=== PATIENT | male | born 1985 | race Caucasian/White ===

== ENCOUNTER 2023-05-20 17:47 | Emergency (ER) | payer OTHER, SELFPAY ==
[2023-05-20 17:54] VITALS: BP 170/110
[2023-05-20 18:10] LABS: Urine Albumin 1+ (Neg - Trace); Urine Bilirubin 1+ (Negative); Urine Character Slightly Cloudy (Clear); Urine Glucose Negative (Negative); Urine Ketone Negative (Negative); Urine Leukocyte Trace (Negative); Urine Nitrite Positive (Negative); Urine Occult Blood 4+ (Negative); Urine Specific Gravity 1.025 (<1.030); Urine Urobilinogen 1+ (Neg - 1+)
[2023-05-20 18:11] LABS: % Basophils 0.9 % (0-2); % Eosinophils 0.7 % (0-6); % Immature Granulocytes 0.3 % (0-0.5); % Lymphocytes 26.3 % (20.5-51.1); % Monocytes 9.5 % (1.7-9.3); % Neutrophils 62.3 % (42.2-75.2); Absolute Basophils 0.1 10^3/uL (0-0.2); Absolute Eosinophils 0.1 10^3/uL (0-0.7); Absolute Lymphocytes 2.7 10^3/uL (1.2-3.4); Absolute Neutrophils 6.4 10^3/uL (1.4-6.5); Hematocrit 48.8 % (39.0-52.0); Mean Corp Hgb Conc. 34.8 g/dL (33.0-37.0); Mean Corpuscular Hgb 29.5 pg (27.0-31.0); Mean Corpuscular Volume 84.6 fL (80.0-94.0); Mean Platelet Volume 8.7 fL (7.4-10.4); Nucleated Red Blood Cells % 0 % (-); Platelet Count 490 10^3/uL (130-400); Red Blood Cell Count 5.77 10^6/uL (4.70-6.10); Red Cell Dist. Width 12.5 % (11.5-14.5); White Blood Cell Count 10.2 10^3/uL (4.8-10.8)
[2023-05-20 18:13] LABS: Urine Color Pink
[2023-05-20 18:20] LABS: Urine Squamous Cell 0-2 /LPF (Few)
[2023-05-20 18:21] LABS: Urine Bacteria Few (Negative); Urine Red Blood Cell >100 /HPF (0-2); Urine White Cell 0-2 /HPF (0-5)
[2023-05-20 18:27] LABS: ALT (SGPT) 88 U/L (0-50); AST (SGOT) 62 U/L (17-59); Albumin 4.6 g/dl (3.5-5.0); Alkaline Phosphatase 50 U/L (38-126); Blood Urea Nitrogen 16 mg/dl (9-20); Carbon Dioxide 30 mmol/L (22-30); Chloride 99 mmol/L (98-107); Glucose 109 mg/dl (70-99); Sodium 141 mmol/L (135-145); Total Bilirubin 0.9 mg/dl (0.2-1.3); Total Protein 8.2 g/dl (6.3-8.2); eGFR > 60.00
[2023-05-20 20:36] VITALS: BP 136/103
[2023-05-20 21:00] VITALS: BP 154/95
--- NOTE | 2023-05-20 21:17 | ED.GENMED ---
History of Present Illness
General
Chief Complaint: Flank Pain
Source: patient
Exam Limitations: none
Time Seen by Provider: 05/20/23 20:36
Nursing documentation reviewed up to this point in time: agreed with
Travel History
Have you had any contact with someone who has COVID-19?: No
Do you have any symptoms of coronavirus? Fever > 100 degrees, chills, cough, shortness of breath, sore throat, loss of taste or smell, muscle aches, or headache?: No
History of Present Illness
History of Present Illness:
PT IS A 37 Y/o M with h/o HTN,sleep anea, kidney stone requiring stent dr. rubio in 2016
here with left flank pain intermittently for a few days here and there
and then today has really felt the urge to urinate and dec stream, sometimes dribbling
his pain is mild to moderate
he has had some vague lack of appetite and fatigue sypmtoms for a few days too
no rectal pain/pressure, no penile discharge, no testicular pain/swelling but some pressure
denies fever, vomiting.
Past History
Past History
ED Past Medical History: Psychiatric (ADHD, generalized anxiety disorder) and Other (Sleep apnea)
ED Past Surgical History: Orthopedic (Cervical fusion 2009)
Social History
Tobacco: Non-smoker
Alcohol: None
Drug: None
Personal: Single
Living: alone
Employment: Employed (sales)
Review of Systems
Review of Systems
Allergies reviewed?: Yes
All Other Systems: Not applicable
Phy Exam
Physical Exam
Physical Exam:
GENERAL: Alert, uncomfortable
Neck: supple
CARDIAC: Regular rate and rhythm .
LUNGS: Clear breath sounds bilaterally, no acute respiratory distress, no wheezes/rales/rhonchi
ABDOMEN: Soft, normal bowel sounds, nondistended, mild left flank tenderness, no guarding, no rebound, neg barrientos's; no cva tenderness
: normal inspection of region
nontender testicles b/l
no rashes
NEUROLOGICAL: Alert and oriented, no focal neuro deficits
SKIN: Warm and dry, skin intact.
PSYCH: Normal and appropriate interaction.
Course
Orders/Labs/Results
Orders:
Orders
05/20/23 18:02
Complete Blood Count/With Diff Urgent
Comprehensive Metabolic Panel Urgent
Urinalysis Reflex To Culture Urgent
Date Specimen was Collected: 05/20/23
Time Specimen was Collected: 17:56
Urine Microscopic Reflex Cult Urgent
Urine Culture Urgent
ANDREW Source: U
Specimen Description:
Date Specimen was Collected: 05/20/23
Time Specimen was Collected: 17:56
05/20/23 21:13
CT Abd/pel Without Iv Or Oral Urgent
Comment:
Reason For Exam: LEFT FLANK PAIN, UTI
0.9% Sodium Chloride 1000 ml [Nss] 1,000 ml IV BOLUS
HYDROmorphone [Dilaudid] 0.5 mg IV NOW STA
Ketorolac [Toradol] 15 mg IV NOW STA
05/20/23 21:18
CefTRIAXone [Rocephin] 1,000 mg IV NOW STA
05/20/23 21:42
Sterile Water [Sterile Water For Injection] 10 ml .ROUTE .STK-MED ONE
05/20/23 23:46
Oxycodone/Acetaminophen [Percocet 5/325] 1 tablet PO NOW STA
Abnormal Lab Results
05/20/23
18:02
Plt Count 490 H 10^3/uL
(130-400)
Absolute Monos (auto) 1.0 H 10^3/uL
(0.1-0.6)
Monocytes % 9.5 H %
(1.7-9.3)
Glucose 109 H mg/dl
(70-99)
AST 62 H U/L
(17-59)
ALT 88 H U/L
(0-50)
Ur Occult Blood Reflex 4+ A
(Negative)
Urine Nitrite (Reflex) Positive A
(Negative)
Urine Bilirubin 1+ A
(Negative)
Leukocyte Esterase Rfl Trace A
(Negative)
Urine RBC >100 A /HPF
(0-2)
Urine Bacteria (Reflex) Few A
(Negative)
Urine Albumin (Reflex) 1+ A
(Neg - Trace)
05/20/23 18:02
05/20/23 18:02
Vital Signs
Initial and Last Documented VS:
Initial Vital Signs
Temp Pulse Resp BP Pulse Ox
99.2 F 101 18 170/110 100
05/20/23 17:54 05/20/23 17:54 05/20/23 17:54 05/20/23 17:54 05/20/23 17:54
Last Documented Vital Signs
Temp Pulse Resp BP Pulse Ox
98.0 F 95 18 177/88 94
05/21/23 00:40 05/21/23 00:40 05/20/23 17:54 05/21/23 00:40 05/21/23 00:40
MDM/Problems Addressed
Differential Diagnosis Includes:
kidney stone, uti, pyelo
MDM/Problems Addressed:
37 y/o M with h/o stone
here with L flank pain, nausea, fatigue, lack of appetite, and urgency/frequency of urination, decreased stream
no fever
nothing taken for pain today
pain is waxing an dwaning
has not had dysuria
on exam pt is comfortable, nontoxic, well appearing
nontender flank and abdomen
urine has nitrite, but is mostly blood and no wbc, few bacteria
wbc 10.2
cr normal
ct shows a L 5.5 mm upj stone
d/w dr. llamas who recommended flomax, abx, urine cutlure, pain meds and see uro as outpatient.
pt reassessed 2330
feeling much better, 5/10 pain
will give percocet and reassess
0010 - pt comfortable with plan to go home
return preacuations.
*Critical Care Note
Total Time (30-74mins, 75-104mins- exclusive of procedures): Not Applicable
ED Attending Note
-
Portions of this chart may have been created with voice recognition software.� Occasional wrong word or��sound alike� substitutions may have occurred due to the inherent limitations of voice recognition software.
Discharge Plan
Departure
Patient Disposition: Home (Routine Discharge)
Date of Disposition: 05/21/23
Time of Disposition: 00:36
Patient with high blood pressure during this ER visit?: Yes
Condition: Fair
Covid-19: Not Applicable
Discharge Problem:
Ureterolithiasis
Instructions: Kidney Stones (DC)
Prescriptions:
New
oxycodone 5 mg tablet
5 mg PO Q8H PRN (Reason: Pain) Qty: 10 0RF
cefdinir 300 mg capsule
300 mg PO BID Qty: 20 0RF
ibuprofen 600 mg tablet
600 mg PO Q8H PRN (Reason: Pain) Qty: 20 0RF
No Action
alprazolam 1 MG tablet
1 mg PO Q6HPRN PRN (Reason: anxiety)
dextroamphetamine-amphetamine [Adderall] 20 MG tablet
40 mg PO DAILY
loratadine 10 MG tablet
10 mg PO DAILY
tamsulosin 0.4 MG capsule
0.4 mg PO DAILY Qty: 5 0RF
valsartan 160 mg Tablet
160 mg PO DAILY
Referrals:
Luigi Rubio MD [Active] - Follow up in 2-3 days (urology)
Pepe Alvarado, DO [Family Provider] - Follow up in 2-3 days
Activity Restrictions/Additional Instructions:
YOU HAVE A 5 MM KIDNEY STONE IN YOUR LEFT URETER NEAR YOUR KIDNEY
IT CAN TAKE SOME TIME TO PASS
DRINK FLUIDS
TAKE FLOMAX ONCE A DAY AND PEE THROUGH THE STRAINER
FOR PAIN:
TYLENOL 2 EXTRA STRENGTH 3 TIMES A DAY
MOTRIN 600 MG EVERY 8 HOURS
IF PAIN IS SEVER
OXYCODONE 5 MG EVERY 6-8 HOURS
IN CASE THERE IS AN INFECTION:
CEFDINIR TWICE A DAY FOR 10 DAYS
RETURN FOR: FEVER, CHILLS, VOMITING, PAIN, INAIBLITY TO URINATE OR ANY CONCENR.
OTHERWISE CALL DR. RUBIO'S OFFICE.
Interventions
Interventions:
*Risk Screen - Suicide Last Done: 05/20/23 17:54
*General Assessment Last Done: 05/20/23 17:54
*Neglect/Abuse Screening Last Done: 05/20/23 17:54
ED- Fall Risk Assessment Last Done: 05/20/23 21:20
*ED COVID-19 Vaccine History Last Done: 05/20/23 17:54
*Nursing Disposition Last Done: 05/21/23 01:10
OZ-Eneffy-Bicbyfsrao Assessment Last Done: 05/20/23 21:20
ED-Male Genitourinary Assessment Last Done: 05/20/23 21:20
Discharge Date and Time
Discharge Date/Time: 05/21/23 01:10
[2023-05-20] MEDS: NSS 1000 IV (21:51)
[2023-05-20] MEDS: DILAUDID 0.5 MG IV (21:52)
[2023-05-20] MEDS: TORADOL 15 MG IV (21:54)
[2023-05-20] MEDS: ROCEPHIN 1000 MG IV (21:57)
[2023-05-21] MEDS: PERCOCET 5/325 1 TABLET PO
[2023-05-21 00:37] VITALS: BP 177/88
[2023-05-21 00:40] VITALS: BP 177/88
== END 2023-05-21 01:10 | disposition home or self-care (01) ==
LOC: EMR 17:47
PROVIDERS: Emergency Medicine; EMERGENCY PHYSICIAN Emergency Medicine; FAMILY PHYSICIAN Internal Medicine
DX: N20.2 Calculus of kidney with calculus of ureter (principal); I10 Essential (primary) hypertension; G47.30 Sleep apnea, unspecified; Z87.442 Personal history of urinary calculi
CPT/HCPCS: 99284; 96374; 96375 ×2; 96361; 74176; 80053; 81003; 81015; 85025; 87086

== ENCOUNTER 2024-09-25 15:01 | Emergency (ER) | payer OTHER, SELFPAY ==
[2024-09-25 15:29] VITALS: BP 130/102
[2024-09-25 15:50] LABS: Urine Albumin 1+ (Neg - Trace); Urine Bilirubin Negative (Negative); Urine Character Clear (Clear); Urine Color Yellow; Urine Glucose Negative (Negative); Urine Ketone Negative (Negative); Urine Leukocyte Negative (Negative); Urine Nitrite Negative (Negative); Urine Occult Blood 3+ (Negative); Urine Urobilinogen Negative (Neg - 1+)
[2024-09-25 15:54] LABS: % Basophils 0.5 % (0-2); % Eosinophils 0.8 % (0-6); % Immature Granulocytes 2.1 % (0-0.5); % Lymphocytes 17.8 % (20.5-51.1); % Monocytes 8.3 % (1.7-9.3); % Neutrophils 70.5 % (42.2-75.2); Absolute Basophils 0.1 10^3/uL (0-0.2); Absolute Eosinophils 0.1 10^3/uL (0-0.7); Absolute Immature Granulocytes 0.3 10^3/uL (0-0.05); Absolute Lymphocytes 2.6 10^3/uL (1.2-3.4); Absolute Monocytes 1.2 10^3/uL (0.1-0.6); Absolute Neutrophils 10.4 10^3/uL (1.4-6.5); Hematocrit 53.4 % (39.0-52.0); Mean Corp Hgb Conc. 33.7 g/dL (33.0-37.0); Mean Corpuscular Hgb 28.7 pg (27.0-31.0); Mean Platelet Volume 8.8 fL (7.4-10.4); Nucleated Red Blood Cells % 0 % (-); Platelet Count 474 10^3/uL (130-400); Red Blood Cell Count 6.28 10^6/uL (4.70-6.10); Red Cell Dist. Width 12.9 % (11.5-14.5); White Blood Cell Count 14.7 10^3/uL (4.8-10.8)
[2024-09-25 16:00] LABS: Urine Mucus Moderate; Urine Squamous Cell 0-2 /LPF (Few)
[2024-09-25 16:01] LABS: Urine Hyaline Cast >15 /LPF (0-2); Urine White Cell 0-2 /HPF (0-5)
[2024-09-25 16:02] LABS: Urine Bacteria Moderate (Negative)
[2024-09-25 16:07] LABS: ALT (SGPT) 102 U/L (0-50); AST (SGOT) 60 U/L (17-59); Albumin 5.5 g/dl (3.5-5.0); Alkaline Phosphatase 48 U/L (38-126); Blood Urea Nitrogen 17 mg/dl (9-20); Calcium 9.9 mg/dl (8.4-10.2); Carbon Dioxide 22 mmol/L (22-30); Chloride 107 mmol/L (98-107); Glucose 120 mg/dl (70-99); Potassium 4.8 mmol/L (3.5-5.1); Sodium 142 mmol/L (135-145); Total Bilirubin 0.9 mg/dl (0.2-1.3); Total Protein 9.5 g/dl (6.3-8.2); eGFR > 60.00
[2024-09-25 16:08] LABS: Lipase 124 U/L (23-300)
--- NOTE | 2024-09-25 17:26 | ED.GENMED ---
History of Present Illness
General
Chief Complaint: Abdominal Pain
Time Seen by Provider: 09/25/24 16:50
History of Present Illness
History of Present Illness:
Note:
CHIEF COMPLAINT(S)
Abdominal pain, belching, diarrhea.
HISTORY OF PRESENT ILLNESS
The patient is a 39-year-old male with a history of kidney stones presenting with abdominal pain, increased belching, diarrhea, and dehydration. Symptoms began two to two and a half days ago, initially noted as belching which went away during the
mornings of the first two days. However, after dinner last night, symptoms significantly worsened. The patient describes a persistent, intense abdominal pain since then, accompanied by major diarrhea. He reports feeling 'majorly dehydrated.' There
is a history of kidney stones, with recent ultrasound findings of two stones on the right side. However, the patient notes that this pain is dissimilar to previous kidney stone episodes.
The patient visited urgent care earlier today due to the severity of symptoms and lack of sleep, where an examination detected two plus proteins in his urine. He also describes an acute cramping pain across his abdomen, which becomes severely
intense at times, causing him to double over. The pain is experienced across the upper and lower abdomen and back. During the visit, he expressed concerns about potential diverticulitis, especially given family history and dietary changes due to
recent household construction, which forced a reliance on take-out food.
ADDITIONAL HISTORY OBTAINED FROM SOURCES OTHER THAN THE PATIENT
Per outpatient recors, the patient had a urine dip showing two plus proteins and an ultrasound displaying two kidney stones on the right side.
EXTERNAL RECORDS REVIEWED
Reviewed a recent outpatient ultrasound performed a month ago indicating cholelithiasis. Also, an unremarkable chest X-ray previously conducted by the patient�s primary care physician was reviewed.
PHYSICAL EXAM
GEN: Well appearing, NAD, WDWN
HEENT: Oral mucosa moist, no scleral icterus
Cardiac: Regular rate and rhythm
Lung: No respiratory distress, no tachypnea
Abdomen: Soft, no rigidity, significant left lower quadrant and suprapubic tenderness, no rebound
MSK: No gross deformity or injuries
Skin: Good color, no pallor or jaundice, no rashes
Neuro: AO x3, moves all extremities freely
Psych: Calm, cooperative
PLAN
Initiate intravenous fluids for dehydration.
Administer pain medication to alleviate discomfort.
Send for computed tomography scan to evaluate for potential acute complicated diverticulitis or other abdominal pathology.
Monitor symptoms and provide supportive treatment.
DIFFERENTIAL DIAGNOSIS
The Differential Diagnosis includes, in no particular order and is not limited to:
1. Acute complicated diverticulitis
2. Kidney stones
3. Cholelithiasis
4. Gastroenteritis
5. Irritable bowel syndrome
6. Mesenteric ischemia
7. Acute abdomen due to infectious etiology
8. Perforated bowel
9. Biliary colic
10. Pancreatitis
Disposition:
SUMMARY OF ENCOUNTER
The patient is a 39-year-old male presenting with lower abdominal pain, belching, and abdominal distension. Initial workup in the emergency department did not reveal a clear etiology of his symptoms. However, CT imaging showed bladder wall
thickening, and urinalysis indicated bacteriuria, suggesting possible cystitis. Nonetheless, this finding does not account for the patients upper abdominal discomfort and distension, which may indicate gastritis or ulcer disease.
ASSESSMENT
The patients presentation is consistent with possible cystitis given the bladder wall thickening and bacteriuria. However, the upper abdominal symptoms may be related to gastritis or ulcer disease.
PLAN
The patient will be treated with antibiotics and proton pump inhibitors (PPI) for broad coverage. He will also be referred to gastroenterology as an outpatient for further evaluation of the upper abdominal symptoms.
INDEPENDENT INTERPRETATION OF TESTS
My independent interpretation of the CT scan suggests bladder wall thickening, raising suspicion for cystitis.
MEDICATION RECONCILIATION
The patient will be prescribed antibiotics and proton pump inhibitors (PPI).
MEDICAL DECISION MAKING
The complexity of this case involves multiple potential diagnoses, requiring antibiotic treatment and further evaluation by gastroenterology. There was consideration of cystitis based on CT and urinalysis findings, but the upper abdominal symptoms
necessitate broader treatment and referral. The decision to escalate care through outpatient gastroenterology consultation was made to thoroughly assess the patients condition and ensure appropriate management.
Past History
Past History
ED Past Medical History: Psychiatric (ADHD, generalized anxiety disorder) and Other (Sleep apnea)
ED Past Surgical History: Orthopedic (Cervical fusion 2009)
Social History
Tobacco: Non-smoker
Alcohol: None
Drug: None
Personal: Single
Living: alone
Employment: Employed (sales)
Phy Exam
Physical Exam
Physical Exam:
.
Course
Orders/Labs/Results
Orders:
Orders
09/25/24 15:31
IV Insert/Care/Rem.- Treatment PRN
09/25/24 15:42
Complete Blood Count/With Diff Urgent
Comprehensive Metabolic Panel Urgent
Lipase Urgent
Urinalysis Reflex To Culture Urgent
Date Specimen was Collected: 09/25/24
Time Specimen was Collected: 15:31
Urine Microscopic Reflex Cult Urgent
Urine Culture Urgent
ANDREW Source: U
Specimen Description:
Date Specimen was Collected: 09/25/24
Time Specimen was Collected: 15:31
09/25/24 17:25
CT Abd/Pel (IV only)-DH only Urgent
Comment:
Reason For Exam: LLQ pain
0.9% Sodium Chloride 1000 ml [Nss] 1,000 ml IV BOLUS
Ketorolac [Toradol] 15 mg IV NOW STA
09/25/24 19:37
HYDROmorphone [Dilaudid] 0.5 mg IV NOW STA
Abnormal Lab Results
09/25/24
15:42
WBC 14.7 H 10^3/uL
(4.8-10.8)
RBC 6.28 H 10^6/uL
(4.70-6.10)
Hct 53.4 H %
(39.0-52.0)
Plt Count 474 H 10^3/uL
(130-400)
Abs Immat Gran (auto) 0.3 H 10^3/uL
(0-0.05)
Absolute Neuts (auto) 10.4 H 10^3/uL
(1.4-6.5)
Absolute Monos (auto) 1.2 H 10^3/uL
(0.1-0.6)
Immature Gran % 2.1 H %
(0-0.5)
Lymphocytes % 17.8 L %
(20.5-51.1)
Glucose 120 H mg/dl
(70-99)
AST 60 H U/L
(17-59)
ALT 102 H U/L
(0-50)
Total Protein 9.5 H g/dl
(6.3-8.2)
Albumin 5.5 H g/dl
(3.5-5.0)
Ur Occult Blood Reflex 3+ A
(Negative)
Urine RBC 3-6 A /HPF
(0-2)
Urine Bacteria (Reflex) Moderate A
(Negative)
Urine Albumin (Reflex) 1+ A
(Neg - Trace)
09/25/24 15:42
09/25/24 15:42
Vital Signs
Initial and Last Documented VS:
Initial Vital Signs
Temp Pulse Resp BP Pulse Ox
98.8 F 113 20 130/102 98
09/25/24 15:29 09/25/24 15:29 09/25/24 15:29 09/25/24 15:29 09/25/24 15:29
Last Documented Vital Signs
Temp Pulse Resp BP Pulse Ox
98.8 F 110 20 136/95 94
09/25/24 15:29 09/25/24 18:18 09/25/24 18:18 09/25/24 20:30 09/25/24 20:30
*Pulse Oximetry
Patient hypoxic: no
Comment: 98%
*Critical Care Note
Total Time (30-74mins, 75-104mins- exclusive of procedures): Not Applicable
ED Attending Note
-
Portions of this chart may have been created with voice recognition software.� Occasional wrong word or��sound alike� substitutions may have occurred due to the inherent limitations of voice recognition software.
Discharge Plan
Departure
Patient Disposition: Home (Routine Discharge)
Date of Disposition: 09/25/24
Time of Disposition: 20:50
Patient with high blood pressure during this ER visit?: No
Discharge Problem:
Abdominal pain
Instructions: Abdominal Pain
Prescriptions:
New
cephalexin 500 mg capsule
500 mg PO Q8H 7 Days Qty: 21 0RF
pantoprazole 40 mg tablet,delayed release (DR/EC)
40 mg PO DAILY Qty: 14 0RF
No Action
alprazolam 1 MG tablet
1 mg PO Q6HPRN PRN (Reason: anxiety)
dextroamphetamine-amphetamine [Adderall] 20 MG tablet
40 mg PO DAILY
loratadine 10 MG tablet
10 mg PO DAILY
tamsulosin 0.4 MG capsule
0.4 mg PO DAILY Qty: 5 0RF
valsartan 160 mg Tablet
160 mg PO DAILY
oxycodone 5 mg tablet
5 mg PO Q8H PRN (Reason: Pain) Qty: 10 0RF
cefdinir 300 mg capsule
300 mg PO BID Qty: 20 0RF
ibuprofen 600 mg tablet
600 mg PO Q8H PRN (Reason: Pain) Qty: 20 0RF
Referrals:
Pepe Alvarado DO [Family Provider, Internal Medicine]
Interventions
Interventions:
*Risk Screen - Suicide Last Done: 09/25/24 15:29
*General Assessment Last Done: 09/25/24 16:40
*Neglect/Abuse Screening Last Done: 09/25/24 15:29
*ED- Fall Risk Assessment Last Done: 09/25/24 16:40
RX-Vxuvtz-Unnslugrfx Assessment Last Done: 09/25/24 16:40
Discharge Date and Time
Print Language: BULGARIAN
[2024-09-25] MEDS: NSS 1000 IV (17:47)
[2024-09-25] MEDS: TORADOL 15 MG IV (17:47)
[2024-09-25 18:18] VITALS: BP 130/82
[2024-09-25] MEDS: DILAUDID 0.5 MG IV (19:42)
[2024-09-25 19:46] VITALS: BP 137/99
[2024-09-25 20:01] VITALS: BP 136/94
[2024-09-25 20:30] VITALS: BP 136/95
[2024-09-25] MEDS: PROTONIX IV 40 MG IV (20:56)
[2024-09-25] MEDS: ROCEPHIN 1000 MG IV (20:57)
[2024-09-25] MEDS: ROXICODONE 5 MG PO (21:07)
== END 2024-09-25 21:15 | disposition home or self-care (01) ==
LOC: EMR 15:01
PROVIDERS: Emergency Medicine; EMERGENCY PHYSICIAN Student in an Organized Health Care Education/Training Program; FAMILY PHYSICIAN Internal Medicine
DX: R10.9 Unspecified abdominal pain (principal); R19.7 Diarrhea, unspecified; E86.0 Dehydration; F90.9 Attention-deficit hyperactivity disorder, unspecified type; F41.1 Generalized anxiety disorder; G47.30 Sleep apnea, unspecified; Z87.442 Personal history of urinary calculi; Z98.1 Arthrodesis status
CPT/HCPCS: 99284; 96374; 96375; 96361; 74177; 80053; 81003; 81015; 83690; 85025; 87086; Q9967